=== PATIENT | female | born 1950 | race Caucasian/White ===

== ENCOUNTER 2019-02-26 08:02 | Day surgery (SDC) | payer OTHER ==
[2019-02-24 15:13] LABS: Absolute Lymphocytes (CBC) 1.6 K/uL (0.7-4.9); Absolute Monocytes 0.3 K/uL (0.1-1.3); Absolute Neutrophil 2.8 K/uL (1.8-8.0); Basophils % 0.9 % (0-1.3); Eosinophils % 2.4 % (0-4.4); Hematocrit 36.7 % (36.0-45.0); Lymphocytes % 32.9 % (15.3-44.8); MPV 7.9 fL (7.6-11.3); Monocytes % 6.9 % (3.3-12.3); RBC Red Blood Cell Count 4.36 M/uL (3.86-4.86)
[2019-02-24 15:42] LABS: Urine Appearance CLEAR; Urine Bilirubin NEGATIVE (NEG); Urine Blood NEGATIVE (NEG); Urine Color YELLOW; Urine Glucose NEGATIVE (NEG); Urine Protein NEGATIVE (NEG); Urine Urobilinogen 0.2 mg/dL (0.2-1.0); Urine pH 6.5 (5.0-7.0)
[2019-02-24 16:00] LABS: Urine Microscopic Reflex ORDER UMIC
[2019-02-24 19:03] LABS: Urine Bacteria 20-50 /HPF (<20); Urine Culture Reflex Order REFLEXED; Urine RBC <5 /HPF (NONE SEEN)
--- OUTSIDE RECORDS SUMMARY | 2019-02-26 08:11 | XMS REPORT | Clinical Summary ---
:1950 Author Organization [facility] Address [address] [place] [id number] Care Team Providers Name Role Phone Radha Dillon MD Unavailable Unavailable Sharpless Primary Care Provider Allergies Active Allergy Reactions Severity Noted Date Comments Niacin Preparations Other (See Comments) 06/10/2013 Oral swelling Medications Medication Sig Dispensed Refills Start Date End Date Status metoprolol (TOPROL XL) Take 200 mg by 0 Active 200 MG 24 hr tablet mouth nightly . multivitamin Take 1 tablet by 0 Active (MULTIVITAMIN) per mouth daily. tablet omeprazole (PRILOSEC) Take 20 mg by 0 Active 20 MG capsule mouth daily. sertraline (ZOLOFT) 100 Take 100 mg by 0 05/19/2014 Active MG tablet mouth nightly. Active Problems Problem Noted Date Overweight 05/21/2015 Post-menopause 01/12/2015 Long-term use of immunosuppressant medication 05/19/2014 Lymphocytosis 01/07/2014 Psoriatic arthritis 06/10/2013 Disorder of bone and cartilage 06/10/2013 Psoriasis 06/10/2013 Cirrhosis 06/10/2013 Immunizations Name Dates Previously Given Next Due Pneumococcal Polysaccharide (Pneumovax) 11/05/2009 Family History Medical History Relation Name Comments Unremarkable Brother Unremarkable Brother Unremarkable Brother Hypothyroidism Daughter Cancer Father non hodjkins lymphoma Macular degeneration Father Hyperlipidemia Mother Hypertension Mother Unremarkable Sister Unremarkable Sister Cancer Sister lung Diverticulitis Son Gout Son Relation Name Status Comments Brother Alive Brother Alive Brother Alive Daughter Alive Father Maternal Grandfather Maternal Grandmother Mother Alive Paternal Grandfather Paternal Grandmother Sister Alive Sister Alive Sister Son Alive Son (Age age 42) ruptured brain anuerysm Son (Age 17) ARDS/ Auto accident Social History Tobacco Use Types Packs/Day Years Used Date Former Smoker Cigarettes 1.5 Quit: 06/09/2012 Smokeless Tobacco: Never Used Comments: 10 cigarettes per week Alcohol Use Drinks/Week oz/Week Comments Yes occasionally/ 1 x weekly ( 2 glasses wine) Sex Assigned at Date Recorded Not on file Job Start Date Occupation Industry Not on file Not on file Not on file Travel History Travel Start Travel End No recent travel history available. Last Filed Vital Signs Not on file Plan of Treatment Health Maintenance Due Date Last Done Comments INFLUENZA VACCINE 08/05/2018 Results Not on fileafter 02/25/2018 Insurance Payer Benefit Plan / Group Subscriber ID Type Phone Address MEDICARE MEDICARE A B xxxxxxxxxx Medicare AETNA - MGD CARE AETNA TRS RETIREES xxxxxxxxxx HMO/POS (Home) [address] [place] [address]
[2019-02-26] MEDS ORDERED: Ringers Lactate 1,000 ML IV ONE (08:33)
[2019-02-26] MEDS ORDERED: CEFAZOLIN/SWI 2gm 2 GM/20 ML SYR ONE (08:34)
[2019-02-26] MEDS ORDERED: LIDOCAINE 2% MPF 5 ML VIAL ONE (09:17)
[2019-02-26] MEDS ORDERED: PROPOFOL 200 MG/20 ML VIAL IV ONE (09:17)
[2019-02-26] MEDS ORDERED: MIDAZOLAM HCL 2 MG/2 ML INJ ONE (09:17)
[2019-02-26] MEDS ORDERED: FENTANYL CITR 100 MCG/2 ML ONE (09:17)
[2019-02-26] MEDS ORDERED: LIDOCAINE 1% W/EPI 1:100,000 MDV 50 ML VIAL ONE (09:22)
[2019-02-26] MEDS ORDERED: KETOROLAC 30 MG/ML INJ ONE (10:37)
--- NOTE | 2019-03-06 09:48 | OP ---
Date of Procedure: 02/26/2019 Surgeon: Breanna Small MD Preoperative Diagnosis: Vulvar intraepithelial neoplasia 2, high-grade vulvar dysplasia. Postoperative Diagnoses: Vulvar intraepithelial neoplasia 2, high-grade vulvar dysplasia and perineo luis felipe. Procedures Performed: 1.Wide local excision of high-grade vulvar dysplasia. 2.Perineorrhaphy. 3.Closure of the wide local excision with advancement flaps from the inner vaginal wall after mobili zing the perineal skin as well. Specimens: Vulvar vestibular epithelium. Anesthesia: General endotracheal. Complications: No complications. Drains: No drains. Condition: Stable. Findings: On vulvar colposcopy, no obvious dysplastic lesions were seen with application of acetic a geovani and needing 2 minutes. There were signs of inflammatory response from reparative changes after t he vulvoperineal biopsy. The images of the vulvar dysplastic changes from the time of the colposcopy was carried to the OR for me to map out the dysplastic changes and make sure that the area of excision was marked out appropri ately, keeping in mind the location of the original dysplastic changes. Procedure In Detail: After the patient was consented, 2 g of Ancef were given in the preop taken to the OR, placed in a supine fashion on the operating table. After general anesthesia was given, she w as placed in dorsal lithotomy position using Nikko stirrups. Vulvar colposcopy was performed with di luted acetic acid. No dysplastic changes were noted other than the reparative changes as dictated ab ove. The area of the excision was mentally marked and the outer margins for reconstruction, all ezio ed out with the help of a marking pen going laterally and labia majora on both sides. Incision was e xtended all the way to the level of the hymenal ring. There was a notable perineocele at this time, which was examined rectal finger as well as the perineal finger and a stage II posterior wall prolaps e with the distal rectovaginal septum defect. The perineal skin was also marked out and the distal part of the incision was placed above the level of the perianal area and then a ortiz-shaped incision was made all the way to the lateral aspects o f the vestibule down to connect the triangle of the tip of the perineal at the tip of the perineum an d in the upper tip to the level of the hymen. Dilute vasopressin was injected into this area. About 20 cc was injected and a 15 blade was used to make the incision widely. The entire skin here was ex cised in full depth till the underlying tissues was seen and then the specimen was sent for permanent pathology. On entering the perineal body, lateral margins were refreshed. The scar tissue was looked at. Three Allis clamps were placed on each side in order for me to recognize the deep transverse perineum, sup erficial transverse perineum that would meet at the level of the perineal body. There was not a nohemi kenyatta body, which was absent. Then this defect continuously went up into the distal part of the poste rior rectovaginal septum. So, incision was made along the posterior rectovaginal septum about 3 cm. This was to raise all the flaps of the vaginal epithelium and sub-epithelium them from th e rectovaginal fascia. Once the fascial edges were identified here, these were held with 2 Allis cla mps. The need to be reconstruct the perineal body and reattachment of the distal parts to the perine al body. This would support. This would not only reduce the posterior wall defect, but it would als o support the perineal body so that the prolapse would not advance over time. Since I did not consent her completely for rectocele repair, this was not performed. After laterally dissecting to find the remnants of the transverse perineal muscles, the ureters were also palpated and identified. Dissection of the rectocele was carried to the lateral aspect to the l evel of the levators. Once the epithelial edges were trimmed up, then plan was to place 2 interrupte d 2-0 Vicryl sutures in distal rectovaginal septum in the distal most part and then reconstructed the perineal body with the finger in the vagina suturing with my other hand. Four 2-0 Vicryl sutures we re placed in the lateral [id number] fashion in order to bring all the deep and superficial transver se perinei muscles attaching into the perineal body together. Once these were all tied down after ch anging the gloves, then, there was an excellent perineal body to which the top rectovaginal septum wa s attached with the running 2-0 Vicryl suture. Once the site-specific defect was repaired, there was excellent tone and so the vaginal epithelial edges were advanced on the top. The lateral labial str atified squamous epithelium was also mobilized as well as the perineal skin as well. The external sp hincter was intact. No problems with this. Then, once advancement flaps were all done with the help of Allis clamps and 15 blade, hemostasis was secured with the help of the Bovie. Then, the incision was closed laterally from the angles on each side with interrupted 2-0 Vicryl, then once the advance ment of the vaginal epithelium could cover the perineum, then, these stitches were placed with the he lp of 3-0 Vicryl sutures attaching them and reconstructing. Then 2-0 Vicryl in a continuous running locked fashion was used to close the distal rectocele repair and the proximal perineal body repair an d 3-0 Vicryl was then taken and subcutaneous closure and subcuticular closures were done all with run josh absorbable Vicryl suture. Then, there were 2 interrupted Vicryl suture that I placed on each si de to take the tension off the suture line and keep everything intact. Once all this was done, there was excellent perineal body. External sphincter appeared to be in tone. Then, the distal rectovagi nal septum was reattached to the newly reconstructed perineal body and the entire skin that was marke d out for a removal of dysplastic skin was all excised completely and then the reconstruction was com pleted. The rectal exam was performed. No evidence of any trauma or mechanical thermal to it. Inst rument, needle, and sponge counts were done and were correct at the case. The patient tolerated the procedure well. She was recovered from anesthesia in the OR and taken to PACU in stable condition. SUSANA/SUSHMA Voice ID: [id number] Report ID: [id number]
== END 2019-02-26 13:15 | disposition home or self-care (01) ==
LOC: OR 08:02
PROVIDERS: ATTEND Obstetrics & Gynecology
PROC: 0UBMXZZ Excision of Vulva, External Approach (ICD-10-PCS; 2019-02-26)
PROC: 0USG0ZZ Reposition Vagina, Open Approach (ICD-10-PCS; principal; 2019-02-26 09:30)
DX: N90.1 Moderate vulvar dysplasia (principal); N95.2 Postmenopausal atrophic vaginitis; K62.3 Rectal prolapse; N81.81 Perineocele; L40.0 Psoriasis vulgaris; I10 Essential (primary) hypertension; K21.9 Gastro-esophageal reflux disease without esophagitis; F32.9 Major depressive disorder, single episode, unspecified; Z79.1 Long term (current) use of non-steroidal anti-inflammatories (NSAID); Z79.899 Other long term (current) drug therapy
CPT/HCPCS: 57285; 56620; 87088; 85025; 87086; 36415; 86900; 86850; 86901; 88305; 87077; 87186; J2704; J2250; J3010; J0690; 81003; 81015

== ENCOUNTER 2019-11-25 18:55 | Emergency (ER) | payer OTHER ==
[2019-11-25] MEDS ORDERED: TETANUS & DIPHTHERIA TOX,ADULT 0.5 ML VIAL ONE (19:36)
[2019-11-25] MEDS ORDERED: LIDOCAINE 1% 20 ML MDV ONE (19:37)
--- NOTE | 2019-11-25 20:02 | RAD REPORT ---
EXAM DESCRIPTION: RAD - Pelvis - 11/25/2019 7:57 pm CLINICAL HISTORY: fall;Pain COMPARISON: Sacrum And Coccyx dated 11/25/2019 FINDINGS: No fracture, dislocation or radiographic evidence of AVN. IMPRESSION: Negative study.
--- NOTE | 2019-11-25 20:02 | RAD REPORT ---
EXAM DESCRIPTION: RAD - Tib Fib Right - 11/25/2019 7:57 pm CLINICAL HISTORY: r/o FB Pain and swelling COMPARISON: No comparisons FINDINGS: No acute fracture or radiopaque foreign body seen. Large plantar and small posterior calca kenyatta spur.
--- NOTE | 2019-11-25 20:04 | RAD REPORT ---
EXAM DESCRIPTION: RAD - Sacrum And Coccyx - 11/25/2019 7:57 pm CLINICAL HISTORY: fall Fall, pain COMPARISON: Spine Lumbar W obliques dated 10/31/2019; SPINE LUMBAR W OBLIQUE dated 08/13/2015; COCCYX dated 03/02/2008; SPINE LUMBAR W OBLIQUE dated 03/02/2008 FINDINGS: No acute fracture is seen. No aggressive marrow lesion.
--- NOTE | 2019-11-25 20:49 | ER ---
Nurse's Notes [facility] Name: Rema Gray Age: 69 yrs Sex: Female : 1950 Arrival Date: 11/25/2019 Time: 18:59 Bed 30 Private MD: Ramon Devlin Diagnosis: Laceration of muscle(s) and tendon(s) of anterior muscle group at lower leg level, right leg;Contusion of right hip Presentation: 11/25 18:59 Presenting complaint: Patient states: fall injury occurred, unsure if she caught her sv shoe on something and has a laceration to RLE and c/o right hip pain and right upper arm. Denies LOC. Care prior to arrival: None. Mechanism of Injury: Fall from standing position. Trauma event details: Injury occurred in the [facility], Injury occurred: at home. Injury occurred: November 25, 2019. 18:59 Acuity: CELY 3 sv 18:59 Method Of Arrival: Ambulatory sv 19:03 Transition of care: patient was not received from another setting of care. Onset of sv symptoms was November 25, 2019. 19:20 Risk Assessment: Do you want to hurt yourself or someone else? Patient reports no hb desire to harm self or others. Initial Sepsis Screen: Does the patient meet any 2 criteria? No. Patient's initial sepsis screen is negative. Does the patient have a suspected source of infection? No. Patient's initial sepsis screen is negative. Trauma Activation: Not Applicable Physician: ED Physician; Name: ; Notified At: ; Arrived At: Physician: General Surgeon; Name: ; Notified At: ; Arrived At: Physician: Radiology; Name: ; Notified At: ; Arrived At: Physician: Respiratory; Name: ; Notified At: ; Arrived At: Physician: Lab; Name: ; Notified At: ; Arrived At: Historical: - Allergies: 19:02 Niacin; sv 19:02 Darvocet-N 100; sv - PMHx: 19:02 brain aneurysm; Hypertension; sv - PSHx: 19:02 Hysterectomy; brain surgery; leg surgery; sv - Immunization history:: Last tetanus immunization: > 10 years ago. - Social history:: Smoking status: Patient denies any tobacco usage or history of. - Ebola Screening: : No symptoms or risks identified at this time. Screenin:38 Abuse screen: Denies threats or abuse. Denies injuries from another. Nutritional hb screening: No deficits noted. Tuberculosis screening: No symptoms or risk factors identified. Fall Risk None identified. Primary Survey: 19:20 NO uncontrolled hemorrhage observed. A: The patient is alert. No supplemental oxygen in hb use on arrival. Breathing/Chest: Respiratory pattern: regular, Respiratory effort: spontaneous, unlabored, Chest inspection: symmetrical rise and fall of the chest. Circulation: Skin color: pink, Skin temperature: warm, dry. Disability Alert. Exposure/Environment: There is no evidence of uncontrolled external bleeding. Obvious injury(ies) are noted at this time: laceration to RLE, dressing dry and intact. 20:00 Reassessment Airway Airway Patent Breathing/Chest Respiratory pattern Regular hb Respiratory effort Spontaneous Unlabored Chest inspection Symmetrical Circulation Color Warm [place] Disability Alert. Secondary Survey: 19:22 HEENT: No deficits noted. Gastrointestinal: No deficits noted. : No signs and/or hb symptoms were reported regarding the genitourinary system. Musculoskeletal: Reports pain in tailbone, bilat hips, and RLE. Assessment: 19:20 General: Appears in no apparent distress. Behavior is calm, cooperative. Pain: Pain hb currently is 8 out of 10 on a pain scale. Neuro: Level of Consciousness is awake, alert, obeys commands, Oriented to person, place, time, situation. Cardiovascular: Capillary refill < 3 seconds Patient's skin is warm and dry. Respiratory: Airway is patent Respiratory effort is even, unlabored, Respiratory pattern is regular, symmetrical. GI: No signs and/or symptoms were reported involving the gastrointestinal system. : No signs and/or symptoms were reported regarding the genitourinary system. EENT: No signs and/or symptoms were reported regarding the EENT system. Derm: Skin is pink, warm \T\ dry. Musculoskeletal: Reports bilateral hip pain, tailbone pain, RLE pain. 20:10 Reassessment: Patient appears in no apparent distress at this time. Patient and/or hb family updated on plan of care and expected duration. Pain level reassessed. Patient is alert, oriented x 3, equal unlabored respirations, skin warm/dry/pink. 20:26 Reassessment: Dr. Myers at bedside for lac repair. hb Vital Signs: 19:02 BP 118 / 86; Pulse 85; Resp 16; Temp 98.8; Pulse Ox 100% ; Weight 77.11 kg; Height 5 sv ft. 6 in. (167.64 cm); Pain 8/10; 20:00 BP 126 / 84; Pulse 82; Resp 15; Pulse Ox 100% on R/A; hb 19:02 Body Mass Index 27.44 (77.11 kg, 167.64 cm) sv Beverly Coma Score: 19:15 Eye Response: spontaneous(4). Verbal Response: oriented(5). Motor Response: obeys hb commands(6). Total: 15. Trauma Score (Adult): 19:15 Eye Response: spontaneous(1); Verbal Response: oriented(1); Motor Response: obeys hb commands(2); Systolic BP: > 89 mm Hg(4); Respiratory Rate: 10 to 29 per min(4); Beverly Score: 15; Trauma Score: 12 20:00 Eye Response: spontaneous(1); Verbal Response: oriented(1); Motor Response: obeys hb commands(2); Systolic BP: > 89 mm Hg(4); Respiratory Rate: 10 to 29 per min(4); Beverly Score: 15; Trauma Score: 12 ED Course: 18:59 Patient arrived in ED. mr 18:59 Ramon Devlin MD is Private Physician. mr 19:02 Triage completed. sv 19:03 Arm band placed on. sv 19:14 José Miguel Myers MD is Attending Physician. tw4 19:20 Patient has correct armband on for positive identification. Bed in low position. Call hb light in reach. Side rails up X 1. 19:20 Patient maintains SpO2 saturation greater than 95% on room air. Thermoregulation: warm hb blanket given to patient. 19:37 Charleen Delarosa, RN is Primary Nurse. hb 19:57 Tib Fib Right XRAY In Process Unspecified. EDMS 19:57 Sacrum And Coccyx XRAY In Process Unspecified. EDMS 19:57 Pelvis XRAY In Process Unspecified. EDMS 20:08 Irrigation of laceration on right shi irrigated with normal saline Betadine solution hb Patient tolerated well. 20:48 Ramon Devlin MD is Referral Physician. tw4 20:57 No provider procedures requiring assistance completed. Patient did not have IV access hb during this emergency room visit. Administered Medications: 20:06 Drug: Tetanus-Diphtheria Toxoid Adult 0.5 ml {Director Of Digital Platforms: [employer]. Exp: hb 11/20/2021. Lot #: [id number]. } Route: IM; Site: right deltoid; 20:47 Follow up: Response: No adverse reaction hb 20:30 Drug: Lidocaine (1 %) 1 vials {Note: administered by Dr. Myers.} Volume: 20 ml; Route: hb Infiltration; 20:36 Drug: Cleocin 300 mg Route: PO; mg2 20:48 Follow up: Response: Medication administered at discharge. hb Intake: 19:15 PO: 0ml; Total: 0ml. hb Output: 19:15 Urine: 0ml; Total: 0ml. hb Outcome: 20:48 Discharge ordered by . tw4 20:57 Discharged to home ambulatory, with significant other. hb 20:57 Condition: stable 20:57 Discharge instructions given to patient, Instructed on discharge instructions, follow up and referral plans. medication usage, wound care, Demonstrated understanding of instructions, follow-up care, medications, wound care, Prescriptions given X 2. 20:58 Patient left the ED. hb 20:58 Patient's length of stay was not longer than 2 hours. hb Signatures: Dispatcher [employer] EDMS Saskia Perdue RN RN sv Rivera, Mary mr Baxter, Heather, RN RN hb Wadley, Terrence, MD MD [facility] Reinier Saleem RN RN mg2 Corrections: (The following items were deleted from the chart) 19:03 18:59 Presenting complaint: Patient states: fall injury occurred, unsure if she caught sv her shoe on something and has a laceration to RLE and c/o right hip pain. Denies LOC. sv 19:40 09:20 Patient has correct armband on for positive identification. Bed in low position. hb Call light in reach. Side rails up X 1. hb
--- NOTE | 2019-11-25 20:49 | EDPHYS ---
Physician Documentation [facility] Name: Rema Gray Age: 69 yrs Sex: Female : 1950 Arrival Date: 11/25/2019 Time: 18:59 Bed 30 Private MD: Ramon Devlin ED Physician José Miguel Myers HPI: 11/25 20:43 This 69 yrs old Female presents to ER via Ambulatory with complaints of Fall tw4 Injury. 20:43 Details of fall: The patient fell from an upright position, while standing, while tw4 walking. Onset: The symptoms/episode began/occurred today. Associated injuries: The patient sustained right shi. Severity of symptoms: At their worst the symptoms were moderate, in the emergency department the symptoms are unchanged. The patient has not experienced similar symptoms in the past. Historical: - Allergies: 19:02 Niacin; sv 19:02 Darvocet-N 100; sv - PMHx: 19:02 brain aneurysm; Hypertension; sv - PSHx: 19:02 Hysterectomy; brain surgery; leg surgery; sv - Immunization history:: Last tetanus immunization: > 10 years ago. - Social history:: Smoking status: Patient denies any tobacco usage or history of. - Ebola Screening: : No symptoms or risks identified at this time. ROS: 20:43 Constitutional: Negative for fever, chills, and weight loss, Eyes: Negative for injury, tw4 pain, redness, and discharge, Cardiovascular: Negative for chest pain, palpitations, and edema, Respiratory: Negative for shortness of breath, cough, wheezing, and pleuritic chest pain, Abdomen/GI: Negative for abdominal pain, nausea, vomiting, diarrhea, and constipation. 20:43 MS/Extremity: Negative for injury and deformity, Skin: Negative for injury, rash, and discoloration. 20:43 MS/extremity: Positive for laceration, pain. 20:48 Back: Positive for injury or acute deformity, pain at rest, pain with movement. tw4 Exam: 20:43 Constitutional: This is a well developed, well nourished patient who is awake, alert, tw4 and in no acute distress. Head/Face: Normocephalic, atraumatic. Chest/axilla: Normal chest wall appearance and motion. Nontender with no deformity. No lesions are appreciated. Cardiovascular: Regular rate and rhythm with a normal S1 and S2. No gallops, murmurs, or rubs. Normal PMI, no JVD. No pulse deficits. Respiratory: Lungs have equal breath sounds bilaterally, clear to auscultation and percussion. No rales, rhonchi or wheezes noted. No increased work of breathing, no retractions or nasal flaring. Abdomen/GI: Soft, non-tender, with normal bowel sounds. No distension or tympany. No guarding or rebound. No evidence of tenderness throughout. Neuro: Awake and alert, GCS 15, oriented to person, place, time, and situation. Cranial nerves II-XII grossly intact. Motor strength 5/5 in all extremities. Sensory grossly intact. Cerebellar exam normal. Normal gait. 20:43 Musculoskeletal/extremity: Extremities: noted in the right shi: laceration. Vital Signs: 19:02 BP 118 / 86; Pulse 85; Resp 16; Temp 98.8; Pulse Ox 100% ; Weight 77.11 kg; Height 5 sv ft. 6 in. (167.64 cm); Pain 8/10; 20:00 BP 126 / 84; Pulse 82; Resp 15; Pulse Ox 100% on R/A; hb 19:02 Body Mass Index 27.44 (77.11 kg, 167.64 cm) sv Beverly Coma Score: 19:15 Eye Response: spontaneous(4). Verbal Response: oriented(5). Motor Response: obeys hb commands(6). Total: 15. Trauma Score (Adult): 19:15 Eye Response: spontaneous(1); Verbal Response: oriented(1); Motor Response: obeys hb commands(2); Systolic BP: > 89 mm Hg(4); Respiratory Rate: 10 to 29 per min(4); Flushing Score: 15; Trauma Score: 12 20:00 Eye Response: spontaneous(1); Verbal Response: oriented(1); Motor Response: obeys hb commands(2); Systolic BP: > 89 mm Hg(4); Respiratory Rate: 10 to 29 per min(4); Beverly Score: 15; Trauma Score: 12 Laceration: 20:46 Wound Repair of 10cm ( 3.9in ) subcutaneous laceration to right shi. Minimal bleeding tw4 noted.. Distal neuro/vascular/tendon intact. Anesthesia: Local anesthetic administered with 3 mls of 1% lidocaine. Wound prep: Moderate cleansing. Skin closed with 4 3-0 Ethilon using interrupted sutures and sterile technique. Dressed with Bacitracin, non-adherent dressing. Patient tolerated well. MDM: 19:14 Patient medically screened. tw4 11/26 03:59 Differential diagnosis: abrasion, closed head injury, contusion. Data reviewed: vital tw4 signs, nurses notes. Data interpreted: Pulse oximetry: Interpretation: normal. Counseling: I had a detailed discussion with the patient and/or guardian regarding: the historical points, exam findings, and any diagnostic results supporting the discharge/admit diagnosis. Special discussion: I discussed with the patient/guardian in detail that at this point there is no indication for admission to the hospital. It is understood, however, that if the symptoms persist or worsen the patient needs to return immediately for re-evaluation. 11/25 19:30 Order name: Tib Fib Right XRAY tw4 11/25 19:30 Order name: Sacrum And Coccyx XRAY tw4 11/25 19:30 Order name: Pelvis XRAY tw4 Administered Medications: 11/25 20:06 Drug: Tetanus-Diphtheria Toxoid Adult 0.5 ml {Health Safety Coordinator: 21GRAMS. Exp: hb 11/20/2021. Lot #: [id number]. } Route: IM; Site: right deltoid; 20:47 Follow up: Response: No adverse reaction 20:30 Drug: Lidocaine (1 %) 1 vials {Note: administered by Dr. Myers.} Volume: 20 ml; Route: hb Infiltration; 20:36 Drug: Cleocin 300 mg Route: PO; mg2 20:48 Follow up: Response: Medication administered at discharge. Disposition: 11/25/19 20:48 Discharged to Home. Impression: Laceration of muscle(s) and tendon(s) of anterior muscle group at lower leg level, right leg, Contusion of right hip. - Condition is Stable. - Discharge Instructions: Laceration Care, Adult, Contusion, [id number]. - Prescriptions for Cleocin 300 mg Oral Capsule - take 1 capsule by ORAL route every 6 hours for 10 days; 40 capsule. Ibuprofen 600 mg Oral Tablet - take 1 tablet by ORAL route every 6 hours As needed take with food; 30 tablet. - Medication Reconciliation Form, Thank You Letter, Antibiotic Education, Prescription Opioid Use form. - Follow up: Ramon Devlin MD; When: Upon discharge from the Emergency Department; Reason: Recheck today's complaints, Continuance of care. - Problem is new. - Symptoms have improved. Signatures: Dispatcher [employer] Saskia Mcmanus, YVROSE RN Charleen Crespo RN RN hb Wadley, Terrence, MD MD tw4 Reinier Saleem RN RN mg2 Corrections: (The following items were deleted from the chart) 20:58 20:48 11/25/2019 20:48 Discharged to Home. Impression: Laceration of muscle(s) and hb tendon(s) of anterior muscle group at lower leg level, right leg; Contusion of right hip. Condition is Stable. Forms are Medication Reconciliation Form, Thank You Letter, Antibiotic Education, Prescription Opioid Use. Follow up: Ramon Devlin; When: Upon discharge from the Emergency Department; Reason: Recheck today's complaints, Continuance of care. Problem is new. Symptoms have improved. tw4
[2019-11-26 12:43] VITALS: TEMP 98.8; O2SAT 100
[2019-11-26 12:45] VITALS: BP 126/84
== END 2019-11-25 20:58 | disposition home or self-care (01) ==
LOC: ER 18:55
PROC: 0JQN0ZZ Repair Right Lower Leg Subcutaneous Tissue and Fascia, Open Approach (ICD-10-PCS; principal; 2019-11-25)
DX: S81.811A Laceration without foreign body, right lower leg, initial encounter (principal); W18.30XA Fall on same level, unspecified, initial encounter; Y93.9 Activity, unspecified; Y92.9 Unspecified place or not applicable; S70.01XA Contusion of right hip, initial encounter; S86.921A Laceration of unspecified muscle(s) and tendon(s) at lower leg level, right leg, initial encounter; Z88.6 Allergy status to analgesic agent; Z23 Encounter for immunization
CPT/HCPCS: 72170; 72220; 90471; 90714; 99284

== ENCOUNTER 2019-12-08 08:00 | Day surgery (SDC) | payer OTHER ==
[2019-12-08 08:37] LABS: MPV 7.5 fL (7.6-11.3)
[2019-12-08 08:47] LABS: Protime INR 1.08
[2019-12-08 09:33] LABS: Platelet Estimate ADEQ
[2019-12-08 10:14] VITALS: BMI 27.4
--- NOTE | 2019-12-08 12:00 | RAD REPORT ---
EXAM DESCRIPTION: RAD - Myelography Lumbar - 12/08/2019 10:50 am CLINICAL HISTORY: M545,[id number] COMPARISON: Spine Lumbar W obliques dated 10/31/2019 TECHNIQUE: Patient presents for lumbar myelography and postmyelogram CT imaging. Patient detailed bi lateral lower extremity radiculopathy episodes with low back pain. Patient reports aneurysm clips jewell norma 20 years earlier for aneurysm. The myelogram procedure, risks and alternatives were discussed with the patient in detail. After answ ering all questions, both oral and written consent were obtained. Patient had no contraindicated leopoldo rgy or medication history. Time-out procedure was performed. Patient was placed in a slightly oblique prone position on the fluoroscopic table. Access site was se lected. The skin of the lower back was prepped and draped in the usual sterile fashion. Skin and deep er tissues were anesthetized with 1% lidocaine. Under fluoroscopic guidance a 22 gauge spinal needle was advanced into the thecal sac. Clear colorless CSF was observed. Approximately 8 mL of Isovue M 30 0 contrast material was instilled into the thecal sac. The needle was withdrawn and a sterile bandage placed to the puncture site. Multiple myelogram images were obtained. The patient was then transferr ed to the CT suite for pending cross-sectional imaging. Patient experienced no immediate complications. Postprocedure care and precaution instructions were g iven to the patient. There were 7 fluoroscopic spot images obtained along with AP and lateral shop firer/fireman images. Fluoro time was 2.3 minutes. FINDINGS: Successful lumbar myelogram procedure performed. There were no immediate complications. Lumbar myelogram findings are incorporated into the CT lumbar spine report.
[2019-12-08 13:26] VITALS: BP 113/57; TEMP 98.8; O2SAT 98
--- NOTE | 2019-12-08 13:54 | RAD REPORT ---
EXAM DESCRIPTION: CT - Spine Lumbar Wo Con - 12/08/2019 10:55 am CLINICAL HISTORY: M545,[id number] Patient details back pain and bilateral lower extremity radicular intermittent symptoms. Patient alex ot undergo MRI imaging due to cerebral aneurysm clips. COMPARISON: Lumbar myelogram films same date, lumbar spine films October 2019 TECHNIQUE: Thin section axial imaging of the lumbar spine was performed. Sagittal and coronal recon struction images were generated and reviewed. All CT scans are performed using dose optimization technique as appropriate and may include automated exposure control or mA/KV adjustment according to patient size. FINDINGS: Minimal height loss changes are present in the T12-L2 bodies. Degenerative endplate change s seen superior endplate L2. Posterior wall heights are preserved. Acute fracture changes are not jonnie ntified. There are no lytic, sclerotic or expansile associated findings. L3-L5 bodies are normal in height. There are no subluxation abnormalities. No paraspinal soft tissue mass identifiable. No pars defects are present. Conus terminates at the inferior L1 level. No clumping or thickening of the cauda equina. T11-12: No herniation or significant disc bulge. Left-sided facet hypertrophy and mild ligamentous th ickening creates flattening of the left posterior thecal sac. No flattening or displacement of the co rd. T12-L1: No herniation or significant disc bulge. No canal or foramen stenosis. L1-2 level: No herniation or disc bulge in the central canal. Minimal right foraminal disc bulge mijares ges without stenosis. Facet joint degenerative changes are mild. L2-3 level: Loss in disc height noted. No herniation present in only very minimal disc bulge within t he central canal. No stenosis in the central canal. Mild right foraminal disc bulge changes are prese nt without significant foramen encroachment. Degenerative gas is present in the disc space. L3-4 level: No herniation or significant disc bulge in the central canal. Minimal foraminal disc bulg e without significant stenosis. Facet degenerative change and ligamentous thickening are present with out flattening of the thecal sac. L4-5 level: Mild broad-based bulging of disc material across the central canal and into each exit for amen. No herniation. Facet degenerative change and ligamentous thickening are present. Thecal sac is 12 mm. No significant foraminal encroachment. L5-S1 level: No herniation or significant disc bulge. No canal or foramen stenosis. Mild facet degene rative change present. IMPRESSION: No disc herniation is present and there is no central canal stenosis identifiable. Patie nt has minimal disc bulge changes at L2-3 and L4-5 without mass effect on the thecal sac. Several disc levels show mild foraminal disc bulges without foraminal stenosis. No abnormality of the conus or cauda equina. The T12- L2 bodies show minimal height loss along the superior endplates. Chronic etiology is favored . No acute fracture line seen. No lytic or sclerotic component. Multilevel facet degenerative change and mild ligamentous thickening not causing significant encroach ment. Left-sided facet hypertrophy and ligamentous thickening T11-12. This flattens the thecal sac but does not contact or displace the cord.
== END 2019-12-08 13:30 | disposition home or self-care (01) ==
LOC: DS 08:00
PROVIDERS: ATTEND Specialist
DX: M54.5 Low back pain (principal); M54.16 Radiculopathy, lumbar region
CPT/HCPCS: 36415; 62304; 72131; 85049; 85610; 85730

== ENCOUNTER 2020-07-23 07:47 | Day surgery (SDC) | payer OTHER ==
--- NOTE | 2020-07-21 05:56 | EKG ---
Test Date: 2020-07-19 Test Time: 11:19:47 Cannon Crewmember: MARIA D MEASUREMENT RESULTS: Intervals: Rate: 65 CA: 152 QRSD: 84 QT: 414 QTc: 430 Woden: P: 11 CA: 152 QRS: 60 T: 78 INTERPRETIVE STATEMENTS: Normal sinus rhythm Nonspecific ST abnormality Abnormal ECG Compared to ECG 06/30/2005 23:55:00 ST (T wave) deviation now present Sinus tachycardia no longer present Electronically Signed On 07-21-20 05:50:49 CDT by Joel Rogers
--- OUTSIDE RECORDS SUMMARY | 2020-07-23 07:51 | XMS REPORT | Continuity of Care Document ---
:1950 Author Organization [facility] t Address [address] [place] [address] 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 3-05 [facility] 00 Center Psoriatic Psoriatic Disease Active [facility] arthritis arthritis 8-06 [facility] - 00:[facility]: [facility] 00 Center Disorder Disorder Disease Active [facility] of bone of bone [facility]06 [facility] - and and 00:00: Medical cartilage cartilage 00 Cent er Psoriasis Psoriasis Disease Active [facility] - [facility]: [facility] 00 Center Cirrhosis Cirrhosis Disease Active [facility] - 00[facility] 00 Center Cough Cough Problem [facility] Seasonal Seasonal Problem Active [facility] allergic allergic [facility] - rhinitis, rhinitis, Chang zoila unspecifie unspecifie l d trigger d trigger Outp ati ent Clinics Generalize Generalize Diagnosis Active [facility] d anxiety d anxiety [facility] - disorder disorder [facility] a l Outpati ent Clinics GERD GERD Diagnosis Active [facility] without without [facility] - esophagiti esophagiti Me moria s s l [facility] Psoriasis Psoriasis Problem Active [facility] ent Clinics Non-season Non-season Diagnosis Active [facility] al al [facility] - allergic allergic Mem[facility] a rhinitis, rhinitis, l unspecifie unspecifie Ou tpati d trigger d trigger ent Clinics Psoriasis Psoriasis Diagnosis Active [facility] with with [facility] - arthropath arthropath Me moria y y l [facility] ent Clinics Current Current Diagnosis Active [facility] moderate moderate [facility] - episode of episode of Me moria major major l depressive depressive Ou tpati disorder disorder ent without without Clinics prior prior episode episode Essential Essential Diagnosis Active [facility] hypertensi hypertensi Darlene kes - on on [facility] ent Clinics Hypothyroi Hypothyroi Diagnosis Active [facility] dism, dism, [facility] - unspecifie unspecifie Me moria d type d type [facility] ent [facility] Fatigue, Fatigue, Diagnosis Active [facility] unspecifie unspecifie Darlene kes - d type d type [facility] ent Clinics History of History of Diagnosis Active [facility] fall fall [facility] ent Clinics Polyp of Polyp of Diagnosis Active [facility] colon, colon, [facility] - unspecifie unspecifie Me moria d part of d part of l colon, colon, [facility] unspecifie unspecifie en t d type d type Clinics Peripheral Peripheral Diagnosis Active [facility] edema edema [facility] ent Clinics Exocrine Exocrine Diagnosis Active [facility] pancreatic pancreatic Darlene kes - insufficie insufficie Me moria ncy ncy [facility] ent Clinics Allergies, Adverse Reactions, Alerts Allergy Allergy Status Severity Reaction(s) Onset Inactive Treating Comm ents Source Name Type Date Date Clinician Niacin Drug Active Other (See Oral [facility] Preparat Allergy Comments) 06-10 swelling Darlene kes - ions 00:00: Medical 00 Center Niacin Allergy Active Moderate Other [place] to to severe da [facility] e Group Niacin Adverse Active Info Not [facility] Reaction Available [facility] ent [facility] Family History Family Member Diagnosis Comments Start Date Stop Date Source Natural brother Unremarkable [facility] Natural daughter Hypothyroidism [facility] Natural father Cancer [facility] Natural father Macular degeneration [facility] Natural mother Hyperlipidemia [facility] Natural mother Hypertension [facility] Natural sister Unremarkable [facility] Natural sister Cancer [facility] Natural son Diverticulitis [facility] Natural son Gout [facility] Social History Social Habit Start Date Stop Date Quantity Comments Source Sex Assigned At [facility] Tobacco Comment 2014-08-19 2014-08-19 10 cigarettes per [facility] I [facility] - 00:00:00 00:00:00 week [facility] Alcohol Comment 2014-08-19 2014-08-19 occasionally/ 1 x [facility] - 00:00:00 00:00:00 weekly ( 2 glasses [facility] wine) History of 2012-06-[address] [facility] tobacco use 00:00:00 Medical Woodrow keith Smoking Status Start Date Stop Date Source Never Smoker [facility] Former smoker 2016-10-19 00:00:00 2016-10-19 00:00:00 [facility] Medications Ordered Filled Start Stop Current Ordering Indication Dosage Frequency Signature Comments Components Source Medication Medication Date Date Medication? Clinician (SIG) Name Name Synthroid Synthroid Yes Sudhakar [address] [facility] 5-20 [place] IN THE [facility] - 00:00: MORNING ON Memoria 00 AN EMPTY l STOMACH Outpati ONCE A DAY ent ORALLY 30 Clinics DAY(S) metoprolol 2015-11 Yes 200mg QD Take [address] (TOPROL XL) 2-13 mg by [facility] - 200 MG 24 16:19: mouth Medical hr tablet 27 nightly . Cente r omeprazole 2015-11 Yes 20mg QD Take [address] (PRILOSEC) 2-13 by mouth [facility] - 20 MG 16:18: daily. Medical capsule 44 [facility] multivitami 2013-11 Yes 1{tbl} QD Take [address] n 0-15 tablet by [facility] - (MULTIVITAM 10:33: mouth Medic al IN) per 47 daily. [facility] tablet sertraline Yes 100mg QD Take [address] (ZOLOFT) 7-15 mg by [facility] - 100 MG 00:00: mouth Medical tablet 00 nightly. Center amlodipine amlodipine No amlodipine [place] 10 mg 10 mg 10 mg da tablet tablet tablet Medical Group meloxicam meloxicam No meloxicam [place] 7.5 mg 7.5 mg 7.5 mg da tablet tablet tablet Medical Group pantoprazol pantoprazol No pantoprazo [place] e 40 mg e 40 mg le 40 mg da tablet,jennifer tablet,jennifer tablet,del Medical yed release yed release ayed G roup release sertraline sertraline No sertraline [place] 100 mg 100 mg 100 mg da tablet tablet tablet Medical Group Metoprolol Metoprolol Yes Sudhakar [address] Succinate Succinate [place] [facility] - [facility] Skyrizi Skyrizi Yes Sudhakar 150 mg [facility] t (150 MG (150 MG [place] every 12 Luke s - Dose) Dose) weeks Memoria l [facility] Clinics Amlodipine Amlodipine Yes Sudhakar TAKE [address] [facility] Besylate Besylate [place] TABLET BY L ukes - MOUTH Memoria EVERY DAY l [facility] Protonix Protonix Yes Sudhakar [address] [place] [facility] Clin[facility] Losartan Losartan Yes Sudhakar [address] Potassium-H Potassium-H [place] [facility] - CTZ CTZ Memoria l [facility] Allergy Allergy [place] [facility] Multivitami Multivitami Yes Sudhakar not [facility] n n [place] defined [facility] Levothyroxi Levothyroxi Yes Sudhakar [address] ne Sodium ne Sodium [place] in the - morning on Memoria an empty l stomach [facility] Cymbalta Cymbalta Yes Sudhakar [address] [facility] [place] [facility] Creon Creon Yes Sudhakar 6-[address] [place] capsules [facility] - [facility]oria [facility] Immunizations Ordered Immunization Filled Immunization Date Status Commen ts Source Name Name Pneumococcal 2009-11-[address] [facility] - Polysaccharide 00:00:00 Medical Ce nter (Pneumovax) Vital Signs Vital Name Observation Time Observation Value Comments Source BP Diastolic 2019-04-10 00:00:00 79 mm[Hg] [facility] Height 2019-04-10 00:00:00 66 [in_i] [facility] BMI (Body Mass 2019-04-10 00:00:00 25.8 kg/m2 [place] [employer] [facility]) Group BP Systolic 2019-04-10 00:00:00 122 mm[Hg] [facility] Body Weight 2019-04-10 00:00:00 2553 [oz_av] [facility] Procedures Procedure Date / Time Performing Clinician Source Performed Repair of Aneurysm by [facility]ste[facility] Plan of Care Planned Activity Planned Date Details Comments Source Instructions [facility] Encounters Start End Encounter Admission Attending Care Care Encounter Source Date/Time Date/Time Type Type Clinicians Facility Department ID 2020-06-09 2020-06-09 [facility] [id number] [facility] [address] 08:15:00 08:15:[address] [facility] Medicine Medicine Outpati ent Clinics 2020-03-23 2020-03-23 [facility] [id number] 15:58[facility]00 15:58:00 [facility] Family Medicine l Medicine Outpati ent Clinics 2020-03-04 2020-03-04 [facility] [id number] [facility] 15:00:00 15:00:00 [facility] Family Medicine l Medicine Outpati ent Clinics 2020-03-04 2020-03-04 [facility] [id number] 14:15:00 14:15:[address] [facility] Medicine l Medicine Outpati ent Clinics 2020-01-06 2020-01-06 [facility] [id number] 09:00:00 09:00:[address] 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 Results This patient has no known results.
--- OUTSIDE RECORDS SUMMARY | 2020-07-23 07:51 | XMS REPORT | Clinical Summary ---
:1950 Author Organization [facility] Address [address] [place] [id number] Care Team Providers Name Role Phone Krystle Dillon MD Unavailable Unavailable [facility] [...] Post-menopause 01/12/2015 Long-term use of immunosuppressant medication 05/19/20 14 Lymphocytosis 01/07/2014 Psoriatic arthritis 06/10/2013 Disorder of bone and cartilage 06/10/2013 Psoriasis 06/10/2013 Cirrhosis 06/10/2013 Immunizations Name Dates Previously Given Next Due Pneumococcal Polysaccharide (Pneumovax) 11/05/2009 Family History Medical History Relation Name Comments Unremarkable Brother Unremarkable Brother Unremarkable Brother Hypothyroidism Daughter Cancer Father non hodjkins lym phoma Macular degeneration Father Hyperlipidemia Mother Hypertension Mother Unremarkable Sister Unremarkable Sister Cancer Sister lung Diverticulitis Son Gout Son Relation Name Status Comments Brother Alive Brother Alive Brother Alive Daughter Alive Father Maternal Grandfather Maternal Grandmother Mother Alive Paternal Grandfather Paternal Grandmother Sister Alive Sister Alive Sister Son Alive Son (Age age 42) ruptured brain anuerysm Son (Age 17) ARDS/ Auto ac cident Social History Tobacco Use Types Packs/Day Years Used Date Former Smoker Cigarettes 1.5 Quit: 06/09/20 12 Smokeless Tobacco: Never Used Comments: 10 cigarettes [...] Signs Not on file Plan of Treatment Not on file Results Not on fileafter 07/23/2019 Insurance Payer Benefit Plan / Group Subscriber ID Type Phone A ddress MEDICARE MEDICARE A B xxxxxxxxxx Medicare AETNA - MGD CARE AETNA TRS RETIREES xxxxxxxxxx HMO/POS
--- OUTSIDE RECORDS SUMMARY | 2020-07-23 07:51 | XMS REPORT ---
:1950 Author Organization eClinicalWorks Care Team Providers Name Role Phone Maegan Machadoh Provider Role Unavailable Allergies, Adverse Reactions, Alerts Substance Reaction Event Type Niacin Info Not Available Drug Allergy Problems Problem Type Condition Code Onset Dates Condition Statu s Problem Seasonal allergic rhinitis, J30.2 Active unspecified trigger Problem GERD without esophagitis K21.9 Act rupinder Problem Cough R05 Active Problem Current moderate episode of major F32.1 Active depressive disorder without prior episode Assessment Fatigue, unspecified type R53.83 Ac tive Problem Non-seasonal allergic rhinitis, J30.89 Active unspecified trigger Assessment History of fall Z91.81 Active Assessment Polyp of colon, unspecified part of K63.5 Active colon, unspecified type Problem Hypothyroidism, unspecified type E03.9 Active Problem Psoriasis L40.9 Active Problem Generalized anxiety disorder F41.1 Active Problem 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 A ctive Problem Essential hypertension I10 Activ e Assessment Peripheral edema R60.9 Active Assessment Exocrine pancreatic insufficiency K86.81 Active Assessment Non-seasonal allergic rhinitis, J30.89 Active unspecified trigger Assessment GERD without esophagitis K21.9 Act rupinder Assessment Hypothyroidism, unspecified type E03.9 Active Assessment Current moderate episode of major F32.1 Active depressive disorder without prior episode Assessment 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 A ctive Assessment Essential hypertension I10 Activ e Assessment Generalized anxiety disorder F41.1 Active Medications Medication Code Code Instructions Start End Status Dosage System Date Date Metoprolol [facility] 90033931375 25 MG Orally Active 1 ca psule Succinate Once a day Skyrizi (150 MG [facility] 18638727510 75 MG/0.83ML Active 150 mg Dose) Subcutaneous every 12 weeks Synthroid [facility] 92968805880 25 MCG Active 1 TABLET I N THE MORNING ON AN EMPTY STOMACH ONCE A DAY ORALLY 30 DAY(S) Amlodipine [facility] 63889428049 10 MG Active TAKE 1 Besylate TABLET BY MOUTH EVERY DAY Protonix [facility] 83604233405 40 MG Orally Active 1 tabl et Once a day Losartan [facility] 68930050712 100-25 MG Active 1 tablet Potassium-HCTZ Orally Once a day Zyrtec Allergy [facility] 58647609067 10 MG Orally Active 1 tablet Once a day Multivitamin [facility] 24316-86797 Active not def ined Levothyroxine [facility] 23804695193 50 MCG Orally Active 1 tablet in Sodium Once a day the morning on an empty stomach Cymbalta [facility] 35415680345 30 MG Orally Active 1 caps ule Once a day Creon [facility] 26793058456 86329 UNIT Active 6-8 Orally Once a capsules day Results No Known Results Summary Purpose eClinicalWorks Submission
[2020-07-23] MEDS ORDERED: Ringers Lactate 1,000 ML IV ONE (08:16)
[2020-07-23] MEDS ORDERED: ROCURONIUM 50 MG/5 ML VIAL IV ONE (09:17)
[2020-07-23] MEDS ORDERED: EPINEPHRINE/PF 1 MG/ML AMP ONE (09:17)
[2020-07-23] MEDS ORDERED: propofoL 200 MG/20 ML VIAL IV ONE (09:17)
[2020-07-23] MEDS ORDERED: LIDOCAINE 2% MPF 5 ML VIAL ONE (09:17)
[2020-07-23] MEDS ORDERED: LIDOCAINE 1% W/EPI 1:100,000 MDV 20 ML VIAL ONE (09:17)
[2020-07-23] MEDS ORDERED: dexAMETHasone 10 MG/ML VIAL ONE (09:17)
[2020-07-23] MEDS ORDERED: FENTANYL CITR 100 MCG/2 ML ONE (09:17)
[2020-07-23] MEDS ORDERED: ONDANSETRON 4 MG/2 ML VIAL ONE ×2 (09:18→10:56)
[2020-07-23] MEDS: HYDROMORPHONE HCL 1 MG/ML INJ ONE ×3 (10:45→10:50)
[2020-07-23] MEDS ORDERED: DIPHENHYDRAMINE 50 MG/ML VIAL ONE (11:18)
[2020-07-23 11:27] VITALS: O2SAT 98
[2020-07-23] MEDS ORDERED: IBUPROFEN 400 MG TAB ONE (11:32)
[2020-07-23] MEDS ORDERED: ACETAMINOPHEN 325 MG TABLET ONE (11:42)
[2020-07-23 12:03] VITALS: BP 153/91; TEMP 97.3
--- NOTE | 2020-07-24 01:40 | OP ---
Date of Procedure: 07/23/2020 Surgeon: Saskia Ramírez MD Stamp Classifier: None. Preoperative Diagnoses: Supraglottic lesion and history of abnormal tracheal appearance. Postoperative Diagnoses: Supraglottic lesion and history of abnormal tracheal appearance. Procedure: Direct laryngoscopy with telescope with removal of mass with tracheoscopy. Indication For Procedure: The patient presented with a history of dysphagia and underwent a modified barium swallow, which demonstrated a small lesion within the vallecula or near the area aryepiglottic fold. The lesion did not appear significantly suspicious for malignancy, but it was uncertain whether the lesion may be contributing to the patient's dysphagia. The risks, benefits, and alternatives were discussed with the patient, who agreed to proceed. Of note, the patient has a remote history of a bronchoscopy performed more than 5 years ago with a photograph demonstrating an abnormal irregularity with multiple small nodules submucosally within the trachea, and surgical plan was to include repeat evaluation of this area. The patient did not have any subjective breathing difficulties or history of wheezing or shortness of breath. Description Of Procedure: The patient was brought to the operating room. She was placed under general anesthesia with small endotracheal tube. She was intubated without any significant difficulty. After successful plane of anesthesia, the [facility] laryngoscope fitted with a 15 degree scope. Telescope was used to perform a direct laryngoscopy. The soft palate, uvula, tonsil, posterior pharyngeal wall, epiglottis, true and false vocal cords, piriform sinuses, and post cricoid regions were all normal with smooth mucosa, no ulcerations and no masses. The lesion noted preoperatively was visualized and photo documentation was obtained. The lesion was relatively small, approximately 3-4 mm, and initially appeared to be within the left aspect of the vallecula with gentle manipulation with a suction. The lesion appeared pedunculated with its attachment point within the lateral aspect of the left vallecula. The lesion was grasped with a laryngeal alligator forceps and a straight laryngeal scissor was used to remove the mass at its attachment point. The mass was sent to Pathology as a single specimen for permanent section only. The vallecula was packed with a gauze sponge to apply pressure to the area to aid in hemostasis and preparations were made to coordinate with anesthesia in regard to the next portion of the procedure. After adequate communication with the Anesthesia team, the gauze sponge was removed. The balloon on the endotracheal tube was deflated and the tube was removed. A long 0 degree rigid telescope was passed through the glottis for visualization of the subglottis and trachea. Photo documentation was obtained. There were multiple small submucosal nodularities on the mid tracheal wall, which were more prominent on the left side. There was no evidence of friability. There was no evidence of airway obstruction and no significant change compared to images provided by the patient from several years ago. Therefore, decision was made to forego a biopsy or other intervention of these areas. The endotracheal tube was then replaced. The tip of the end of the endotracheal tube was grasped with large cup forceps and held in place while the laryngoscope was carefully removed. Once the laryngoscope was completely removed, the endotracheal tube was resecured with tape to the patient's face and the procedure was concluded. The patient was returned to care of Anesthesia for awakening and extubation in the operating room, which proceeded without difficulty. Complications: None. Disposition: The patient will be discharged home later today in the care of her family. RUFSU Voice ID: [id number] Report ID: [id number] MTDD
== END 2020-07-23 12:35 | disposition home or self-care (01) ==
LOC: OR 07:47
PROVIDERS: ATTEND Otolaryngology
PROC: 0BB18ZZ Excision of Trachea, Via Natural or Artificial Opening Endoscopic (ICD-10-PCS; principal; 2020-07-23 09:30)
DX: D10.5 Benign neoplasm of other parts of oropharynx (principal); K21.9 Gastro-esophageal reflux disease without esophagitis; I10 Essential (primary) hypertension; D64.9 Anemia, unspecified; E03.9 Hypothyroidism, unspecified; K86.1 Other chronic pancreatitis; Z20.828 Contact with and (suspected) exposure to other viral communicable diseases
CPT/HCPCS: 31541; 93005; 88305; J2704; J1200; J3010; J1100; J1170; J7120; J2405 ×2; J0171

== ENCOUNTER 2021-04-18 08:22 | Emergency (ER) | payer OTHER ==
[2021-04-18] MEDS ORDERED: IBUPROFEN 200 MG TAB PO ONE (08:58)
[2021-04-18] MEDS ORDERED: IBUPROFEN 400 MG TAB ONE (08:59)
--- NOTE | 2021-04-18 10:13 | RAD REPORT ---
EXAM DESCRIPTION: RAD - Knee Right 3 View - 04/18/2021 9:56 am CLINICAL HISTORY: PAIN COMPARISON: No comparisons FINDINGS: No acute fracture or dislocation is seen. Moderate suprapatellar joint effusion.
--- NOTE | 2021-04-18 11:13 | ER ---
Nurse's Notes [facility] Ernesto Name: Rema Gray Age: 71 yrs Sex: Female : 1950 Arrival Date: 04/18/2021 Time: 08:22 Bed 19 Private MD: Diagnosis: Effusion, right knee;Fall due to bumping against object;Pain in right knee Presentation: 04/18 08:22 Chief complaint: Patient states: R knee pain that began 2 days ago after falling from ss standing position. Coronavirus screen: Client denies travel out of the [place] in the last 14 days. Ebola Screen: Patient denies exposure to infectious person. Patient denies travel to an Ebola-affected area in the 21 days before illness onset. Initial Sepsis Screen: Does the patient meet any 2 criteria? No. Patient's initial sepsis screen is negative. Does the patient have a suspected source of infection? No. Patient's initial sepsis screen is negative. Risk Assessment: Do you want to hurt yourself or someone else? Patient reports no desire to harm self or others. Onset of symptoms was April 16, 2021. 08:22 Method Of Arrival: Ambulatory 08:22 Acuity: CELY 4 ss Historical: - Allergies: 08:24 Darvocet-N 100; ss 08:24 Niacin; ss - PMHx: 08:24 brain aneurysm; Hypertension; ss - PSHx: 08:24 Hysterectomy; brain surgery; leg surgery; ss - Immunization history:: Adult Immunizations unknown. - Social history:: Smoking status: unknown. - Family history:: not pertinent. Screenin:08 Abuse screen: Denies threats or abuse. Nutritional screening: No deficits noted. jd3 Tuberculosis screening: No symptoms or risk factors identified. Fall Risk Ambulatory Aid- Crutches/Cane/Walker (15 pts). Gait- Weak (10 pts.). Mental Status- Oriented to own ability (0 pts). Total Lagos Fall Scale indicates Low Risk Score (25-44 pts). Fall prevention measures have been instituted. Side Rails Up X 2 Placed close to Nursing Station Frequent Obs/Assesments occuring Family Present and informed to notify staff if they need to leave bedside. Assessment: 09:00 General: Appears in no apparent distress. comfortable, Behavior is calm, cooperative, jd3 appropriate for age. Pain: Complains of pain in right knee Quality of pain is described as shooting, tender. Neuro: Level of Consciousness is awake, alert, obeys commands, Oriented to person, place, time, situation. Cardiovascular: Denies chest pain, Capillary refill < 3 seconds Patient's skin is warm and dry. Respiratory: Airway is patent Respiratory effort is even, unlabored, Respiratory pattern is regular, symmetrical, Denies cough, shortness of breath. GI: No signs and/or symptoms were reported involving the gastrointestinal system. : No signs and/or symptoms were reported regarding the genitourinary system. EENT: No signs and/or symptoms were reported regarding the EENT system. Derm: Skin is intact, Skin is dry, Skin is normal, Skin temperature is warm Bruising that is dark purple, on chin. Musculoskeletal: Circulation, motion, and sensation intact. Range of motion: intact in all extremities. 10:01 Reassessment: Patient appears in no apparent distress at this time. No changes from jd3 previously documented assessment. Patient and/or family updated on plan of care and expected duration. Pain level reassessed. Patient is alert, oriented x 3, equal unlabored respirations, skin warm/dry/pink. 10:55 Reassessment: Patient appears in no apparent distress at this time. Patient and/or jd3 family updated on plan of care and expected duration. Pain level reassessed. Patient is alert, oriented x 3, equal unlabored respirations, skin warm/dry/pink. provider at bedside. 11:35 Reassessment: Patient appears in no apparent distress at this time. Patient and/or jd3 family updated on plan of care and expected duration. Pain level reassessed. Patient is alert, oriented x 3, equal unlabored respirations, skin warm/dry/pink. Vital Signs: 09:08 BP 119 / 87; Pulse 89; Resp 17 S; Temp 98.3(TE); Pulse Ox 99% on R/A; jd3 10:56 Pulse 87; Resp 16 S; Pulse Ox 99% on R/A; jd3 ED Course: 08:22 Patient arrived in ED. ss 08:23 Triage completed. ss 08:24 Arm band placed on right wrist. ss 08:27 James Morris RN is Primary Nurse. jd3 08:29 James Morris RN is Primary Nurse. jd3 08:30 Patrick Monreal MD is Attending Physician. [facility] 09:09 Patient has correct armband on for positive identification. Bed in low position. Call jd3 light in reach. Side rails up X 1. Adult w/ patient. Pulse ox on. NIBP on. 09:56 XRAY Knee RIGHT 3 view In Process Unspecified. EDCT 11:11 Kip Franks MD is Referral Physician. [facility] 11:35 No provider procedures requiring assistance completed. Patient did not have IV access jd3 during this emergency room visit. Administered Medications: 08:48 Drug: Motrin (ibuprofen) 600 mg Route: PO; jd3 09:48 Follow up: Response: No adverse reaction jd3 11:04 Drug: Telephone (HYDROcodone-acetaminophen) 10 mg-325 mg 1 tabs Route: PO; iw 11:35 Follow up: Response: No adverse reaction; RASS: Alert and Calm (0) jd3 11:04 Drug: Ondansetron 4 mg Route: PO; iw 11:35 Follow up: Response: No adverse reaction jd3 Outcome: 11:13 Discharge ordered by . [facility] 11:36 Discharged to home ambulatory, with crutches, with family. jd3 11:36 Condition: stable 11:36 Discharge instructions given to patient, family, Instructed on discharge instructions, follow up and referral plans. medication usage, Demonstrated understanding of instructions, follow-up care, medications, Prescriptions given X 2. 11:36 Patient left the ED. jd3 Signatures: Dispatcher [employer] EDCT Patrick Monreal MD MD cha Williams, Irene, RN RN Winter Amse RN RN James Morris, YVROSE RN jd3
--- NOTE | 2021-04-18 11:13 | EDPHYS ---
Physician Documentation [facility] Name: Rema Gray Age: 71 yrs Sex: Female : 1950 Arrival Date: 04/18/2021 Time: 08:22 Bed 19 Private MD: DOYLE Physician Patrick Monreal HPI: 04/18 11:02 This 71 yrs old Female presents to ER via Ambulatory with complaints of Knee satinder Pain. 11:02 The patient presents with decreased range of motion, an injury, pain, that is acute. satinder The complaints affect the right knee. Context: resulted from the patient falling, the patient can partially bear weight. Onset: The symptoms/episode began/occurred 2 day(s) ago. Modifying factors: The symptoms are alleviated by elevating leg, remaining still, the symptoms are aggravated by movement, weight bearing, bending knee. Associated signs and symptoms: The patient has no apparent associated signs or symptoms. Treatment prior to arrival includes: elevation of the extremity. Severity of symptoms: At their worst the symptoms were mild, moderate, in the emergency department the symptoms are unchanged. The patient has not experienced similar symptoms in the past. Historical: - Allergies: 08:24 Darvocet-N 100; ss 08:24 Niacin; ss - PMHx: 08:24 brain aneurysm; Hypertension; ss - PSHx: 08:24 Hysterectomy; brain surgery; leg surgery; ss - Immunization history:: Adult Immunizations unknown. - Social history:: Smoking status: unknown. - Family history:: not pertinent. ROS: 11:02 Constitutional: Negative for fever, chills, and weight loss, Eyes: Negative for injury, satinder pain, redness, and discharge, ENT: Negative for injury, pain, and discharge, Neck: Negative for injury, pain, and swelling, Cardiovascular: Negative for chest pain, palpitations, and edema, Respiratory: Negative for shortness of breath, cough, wheezing, and pleuritic chest pain, Abdomen/GI: Negative for abdominal pain, nausea, vomiting, diarrhea, and constipation, Back: Negative for injury and pain, : Negative for injury, bleeding, discharge, and swelling, Skin: Negative for injury, rash, and discoloration, Neuro: Negative for headache, weakness, numbness, tingling, and seizure, Psych: Negative for depression, anxiety, suicide ideation, homicidal ideation, and hallucinations, Allergy/Immunology: Negative for hives, rash, and allergies, Endocrine: Negative for neck swelling, polydipsia, polyuria, polyphagia, and marked weight changes, Hematologic/Lymphatic: Negative for swollen nodes, abnormal bleeding, and unusual bruising. 11:02 MS/extremity: Positive for decreased range of motion, pain, swelling, tenderness. Exam: 11:05 Constitutional: This is a well developed, well nourished patient who is awake, alert, satinder and in no acute distress. Head/Face: Normocephalic, atraumatic. Eyes: Pupils equal round and reactive to light, extra-ocular motions intact. Lids and lashes normal. Conjunctiva and sclera are non-icteric and not injected. Cornea within normal limits. Periorbital areas with no swelling, redness, or edema. ENT: Nares patent. No nasal discharge, no septal abnormalities noted. Tympanic membranes are normal and external auditory canals are clear. Oropharynx with no redness, swelling, or masses, exudates, or evidence of obstruction, uvula midline. Mucous membranes moist. Neck: Trachea midline, no thyromegaly or masses palpated, and no cervical lymphadenopathy. Supple, full range of motion without nuchal rigidity, or vertebral point tenderness. No Meningismus. Chest/axilla: Normal chest wall appearance and motion. Nontender with no deformity. No lesions are appreciated. Cardiovascular: Regular rate and rhythm with a normal S1 and S2. No gallops, murmurs, or rubs. Normal PMI, no JVD. No pulse deficits. Respiratory: Lungs have equal breath sounds bilaterally, clear to auscultation and percussion. No rales, rhonchi or wheezes noted. No increased work of breathing, no retractions or nasal flaring. Abdomen/GI: Soft, non-tender, with normal bowel sounds. No distension or tympany. No guarding or rebound. No evidence of tenderness throughout. Back: No spinal tenderness. No costovertebral tenderness. Full range of motion. Female : Normal external genitalia. Skin: Warm, dry with normal turgor. Normal color with no rashes, no lesions, and no evidence of cellulitis. Neuro: Awake and alert, GCS 15, oriented to person, place, time, and situation. Cranial nerves II-XII grossly intact. Motor strength 5/5 in all extremities. Sensory grossly intact. Cerebellar exam normal. Normal gait. Psych: Awake, alert, with orientation to person, place and time. Behavior, mood, and affect are within normal limits. 11:05 Musculoskeletal/extremity: ROM: limited active range of motion, limited passive range of motion, limited active range of motion due to pain, limited passive range of motion due to pain, Circulation is intact in all extremities. Sensation intact. Compartment Syndrome exam of affected extremity: is normal. Weight bearing: can bear weight with assistance only, uses crutch, DVT Exam: negative Homans' sign noted on exam, no appreciated bluish discoloration, no erythema, no increased warmth, pain, swelling, tenderness. Vital Signs: 09:08 BP 119 / 87; Pulse 89; Resp 17 S; Temp 98.3(TE); Pulse Ox 99% on R/A; jd3 10:56 Pulse 87; Resp 16 S; Pulse Ox 99% on R/A; jd3 MDM: 08:30 Patient medically screened. [facility] 11:10 Differential diagnosis: closed fracture, contusion. Data reviewed: vital signs, nurses [facility] notes, radiologic studies, plain films. Data interpreted: director of radiology: rate is 87 beats/min. Test interpretation: by ED physician or midlevel provider: plain radiologic studies. Counseling: I had a detailed discussion with the patient and/or guardian regarding: the historical points, exam findings, and any diagnostic results supporting the discharge/admit diagnosis, lab results, radiology results, the need for outpatient follow up, for definitive care, a family practitioner, a orthopedic surgeon. 04/18 08:26 Order name: XRAY Knee RIGHT 3 view ss 04/18 08:31 Order name: Ice pack; Complete Time: 08:48 satinder 04/18 11:02 Order name: Crutches; Complete Time: 11:35 satinder 04/18 11:02 Order name: Knee Immobilizer; Complete Time: 11:34 [facility] Administered Medications: 08:48 Drug: Motrin (ibuprofen) 600 mg Route: PO; jd3 09:48 Follow up: Response: No adverse reaction jd3 11:04 Drug: [place] (HYDROcodone-acetaminophen) 10 mg-325 mg 1 tabs Route: PO; iw 11:35 Follow up: Response: No adverse reaction; RASS: Alert and Calm (0) jd3 11:04 Drug: Ondansetron 4 mg Route: PO; iw 11:35 Follow up: Response: No adverse reaction jd3 Disposition: 04/18/21 11:13 Discharged to Home. Impression: Effusion, right knee, Fall due to bumping against object, Pain in right knee. - Condition is Stable. - Discharge Instructions: Joint Pain, How to Use a Knee Brace, Knee Effusion, Musculoskeletal Pain, Knee Pain, Cryotherapy, Zagz-yh-Ress, Cryotherapy, Knee Pain, Rilp-uc-Bhkh, Joint Pain, Xbsb-hb-Nkkw. - Prescriptions for Ibuprofen 600 mg Oral Tablet - take 1 tablet by ORAL route every 8 hours As needed take with food; 21 tablet. Tylenol- Codeine #3 300-30 mg Oral Tablet - take 2 tablets by ORAL route every 4-6 hours As needed; 20 tablet. - Medication Reconciliation Form, Thank You Letter, Antibiotic Education, Prescription Opioid Use form. - Follow up: Private Physician; When: 2 - 3 days; Reason: Recheck today's complaints, Continuance of care, Re-evaluation by your physician. Follow up: Kip Franks MD; When: 2 - 3 days; Reason: Recheck today's complaints, Continuance of care, Re-evaluation by your physician. - Problem is new. - Symptoms have improved. Signatures: Dispatcher [employer] EDMS Patrick Monreal MD MD cha Williams, Irene, RN YVROSE Winter Ames RN RN ss Davies, Jonathon, RN RN jd3 Corrections: (The following items were deleted from the chart) 11:36 11:13 04/18/2021 11:13 Discharged to Home. Impression: Effusion, right knee; Fall due jd3 to bumping against object; Pain in right knee. Condition is Stable. Forms are Medication Reconciliation Form, Thank You Letter, Antibiotic Education, Prescription Opioid Use. Follow up: Private Physician; When: 2 - 3 days; Reason: Recheck today's complaints, Continuance of care, Re-evaluation by your physician. Follow up: Dr. Kip Franks; When: 2 - 3 days; Reason: Recheck today's complaints, Continuance of care, Re-evaluation by your physician. Problem is new. Symptoms have improved. satinder
[2021-04-18] MEDS ORDERED: ONDANSETRON 4 MG (ODT) TAB ONE (11:26)
[2021-04-18] MEDS ORDERED: HYDROCODONE/APAP 10/325 TAB ONE (11:26)
[2021-04-18 11:41] VITALS: BP 119/87; TEMP 98.3; O2SAT 99
== END 2021-04-18 11:36 | disposition home or self-care (01) ==
LOC: ER 08:22
DX: M25.461 Effusion, right knee (principal); W18.00XA Striking against unspecified object with subsequent fall, initial encounter; I10 Essential (primary) hypertension; Z88.5 Allergy status to narcotic agent; Z91.048 Other nonmedicinal substance allergy status
CPT/HCPCS: 99284

== ENCOUNTER 2021-05-24 06:23 | Day surgery (SDC) | payer OTHER ==
[2021-05-24] MEDS ORDERED: Ringers Lactate 1,000 ML IV ONE (07:00)
[2021-05-24] MEDS ORDERED: MIDAZOLAM HCL 2 MG/2 ML INJ ONE (07:23)
[2021-05-24] MEDS ORDERED: propofoL 200 MG/20 ML VIAL IV ONE (07:23)
[2021-05-24] MEDS ORDERED: dexAMETHasone 10 MG/ML VIAL ONE (07:23)
[2021-05-24] MEDS ORDERED: FENTANYL CITR 100 MCG/2 ML ONE (07:23)
[2021-05-24] MEDS ORDERED: LIDOCAINE 1% MPF 5 ML VIAL ONE (07:24)
[2021-05-24] MEDS ORDERED: ONDANSETRON 4 MG/2 ML VIAL ONE (07:24)
[2021-05-24] MEDS ORDERED: CELECOXIB 100 MG CAPSULE ONE (07:38)
[2021-05-24] MEDS ORDERED: ACETAMINOPHEN 500 MG TAB ONE (07:38)
[2021-05-24] MEDS ORDERED: VASOPRESSIN 20 UNIT/ML VIAL ONE (07:55)
[2021-05-24] MEDS ORDERED: NA CHLORIDE 0.9% 0 ML IV ONE (07:55)
[2021-05-24] MEDS ORDERED: CEFAZOLIN/SWI 1gm 2 GM/20 ML SYR ONE (08:12)
[2021-05-24] MEDS: LIDOCAINE 1% W/EPI 1:100,000 MDV 20 ML VIAL ONE ×2 (08:18→08:20)
[2021-05-24] MEDS ORDERED: GLYCOPYRROLATE 0.2 MG/ML SYR ONE (08:44)
[2021-05-24] MEDS ORDERED: KETOROLAC 30 MG/ML INJ ONE (09:21)
[2021-05-24 11:33] VITALS: BP 148/79
[2021-05-24 11:38] VITALS: TEMP 97.2; O2SAT 99
--- NOTE | 2021-05-29 17:48 | OP ---
Date of Procedure: 05/24/2021 Surgeon: Breanna Small MD Sandwich Machine Operator: Sonia Sosa. 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 Procedures Performed: 1.Vulvar colposcopy. 2.Wide local excision of the dysplastic lesion. 3.V-Y perineoplasty. Anesthesia: General with LMA. Estimated Blood Loss: Minimal. Specimens: Perineal and vestibular skin. Complications: No complications. Drains: No drains. Condition: The patient's condition is stable. Findings: On vulvar colposcopy, old biopsy sites were noted as well as the areas marked on the vulva r colposcopy . These were confirmed on acetic acid application. The area of the previous dissection was identified and borders were marked for the excision of the lesion. At least 5 mm were ensured to be over from the microscopically visualized area of abnormality. On measurement, there was a 2.5 x 2 cm specimen that was obtained. I had an additional deepening treva hermosillo. Description Of Procedure: The patient is a 71-year-old with recurrent vulvar dysplasia over 2 years. Margins were positive on the last excision, then slowly over time the dysplasia has recurred in a s imilar location. Then, on colposcopy in the office 6 months ago, she had dysplasia. However, she wa s being observed and brought in for excision since there was no regression. Ancef was given preoperatively. The patient was prepped and draped in a sterile fashion after the ma rkings were placed. A simple straight catheter was used to catheterize the patient and local injecti on with 0.5% Marcaine was given in the area of the excision and on the lateral aspects of the perineu m as well. Then, a 15 blade was used to make a transverse skin incision. The entire skin was excise d in full thickness. Then, a proximal sliver of vestibular or vaginal epithelium was also excised so that there would be no extension to the inside. Once all these were handed up and being marked kayley rlthai for their margins, which was right, left and superior and inferior. Once this was sent away, arias kapil the perineum was fairly non-elastic and was difficult to reconstruct, so undermined the entire h ymenal area of the scar into the posterior wall prolapsed. Then, once the proximal margin was comple tely free and mobile, the lateral margins were visualized. The scar of the deep transverse perineum was exposed on both sides. Then, once all the incisions were well visible, then the v-shaped excisio n was closed and Y especially with advancement flaps. Interrupted 2-0 Vicryl and 3-0 Vicryl sutures were placed x6, 2 in the center, 2 on each side of the Y, then 4-0 Vicryl suture was taken and a cont inuous running horizontal mattress suture was placed to close the transverse incision. Then, the joanne tical incision was closed with a separate 4-0 Vicryl. Once all this was done, rectal exam was perfor med. There was no evidence of any trauma. The patient tolerated the procedure well. She was recove red and taken to PACU in stable condition. Instrument, needle, and sponge counts were correct at the end of the case. 0.5% Marcaine 10 cc was injected for postoperative pain control. SUSANA/SUSHMA Voice ID: [id number] Report ID: [id number]
== END 2021-05-24 11:20 | disposition home or self-care (01) ==
LOC: OR 06:23
PROVIDERS: ATTEND Obstetrics & Gynecology
PROC: 0UJH8ZZ Inspection of Vagina and Cul-de-sac, Via Natural or Artificial Opening Endoscopic (ICD-10-PCS; principal; 2021-05-24 07:30)
PROC: 0UBM0ZZ Excision of Vulva, Open Approach (ICD-10-PCS; 2021-05-24 07:30)
DX: N90.1 Moderate vulvar dysplasia (principal); L40.0 Psoriasis vulgaris; N95.2 Postmenopausal atrophic vaginitis; I10 Essential (primary) hypertension
CPT/HCPCS: 56820; 14040; 88305; J2704; J2250; J3010; J1100; J0690; J7120; J2405

== ENCOUNTER 2021-09-02 09:03 | Day surgery (SDC) | payer OTHER ==
--- NOTE | 2021-08-30 12:13 | EKG ---
Test Date: 2021-08-30 Test Time: 07:36:05 Latrine Cleaner: VIKTORIA MEASUREMENT RESULTS: Intervals: Rate: 69 SD: 184 QRSD: 86 QT: 402 QTc: 430 Hardwick: P: 51 SD: 184 QRS: 39 T: 61 INTERPRETIVE STATEMENTS: Normal sinus rhythm Normal ECG Compared to ECG 07/19/2020 11:19:47 ST (T wave) deviation no longer present Electronically Signed On 08-30-21 12:12:43 CDT by Joel Rogers
[2021-09-02] MEDS ORDERED: OXYMETAZOLINE HCL 0.05% 15ML NAS ONE ×2 (10:59→13:40)
[2021-09-02] MEDS ORDERED: Ringers Lactate 1,000 ML IV ONE (10:59)
[2021-09-02] MEDS ORDERED: ACETAMINOPHEN 500 MG TAB ONE (10:59)
[2021-09-02] MEDS: NA CHLORIDE 0.9% 1,000 ML ONE ×2 (13:15→14:13)
[2021-09-02] MEDS ORDERED: propofoL 200 MG/20 ML VIAL IV ONE (13:26)
[2021-09-02] MEDS ORDERED: MIDAZOLAM HCL 2 MG/2 ML INJ ONE (13:26)
[2021-09-02] MEDS ORDERED: LIDOCAINE 2% MPF 5 ML VIAL ONE (13:26)
[2021-09-02] MEDS ORDERED: GLYCOPYRROLATE 0.2 MG/ML SYR ONE (13:26)
[2021-09-02] MEDS ORDERED: ROCURONIUM 50 MG/5 ML VIAL IV ONE (13:27)
[2021-09-02] MEDS ORDERED: FENTANYL CITR 100 MCG/2 ML ONE (13:29)
[2021-09-02] MEDS ORDERED: ONDANSETRON 4 MG/2 ML VIAL ONE (13:29)
[2021-09-02] MEDS ORDERED: dexAMETHasone 10 MG/ML VIAL ONE (13:30)
[2021-09-02] MEDS ORDERED: LIDOCAINE 1% W/EPI 1:100,000 MDV 20 ML VIAL ONE (13:40)
--- NOTE | 2021-09-02 16:23 | P.BOP ---
Preoperative diagnosis: deviated septum, sarahy, ITH, NO Postoperative diagnosis: same Primary procedure: septoplasty Secondary procedure: right sarahy resection Other procedure(s): ITR Information Technology Technician: NONE,NONE Estimated blood loss: 30ml Specimen: septum/turbinates Anesthesia: General Complications: None Implants: Xerogel, Monson Splints Fluids & blood products: crystalloid 900ml Transferred to: Recovery Room Condition: Fair
[2021-09-02 16:51] VITALS: O2SAT 98
[2021-09-02] MEDS ORDERED: TRAMADOL HCL 50 MG TAB ONE (18:08)
[2021-09-02 19:06] VITALS: BP 173/77; TEMP 97.4
--- NOTE | 2021-09-03 04:06 | OP ---
Date of Procedure: 09/02/2021 Surgeon: Saskia Ramírez MD Preoperative Diagnoses: Septal deviation, bilateral sarahy bullosa, inferior turbinate hypertrophy and nasal obstruction. Postoperative Diagnoses: Septal deviation, bilateral sarahy bullosa, inferior turbinate hypertrophy and nasal obstruction. Procedure: Septoplasty, right sarahy bullosa resection, turbinate reduction via intramural cauterization. Indication For Procedure: Ms. Gray sustained remote facial trauma from a fall and did not seek medical attention at the time of the injury. She subsequently noted difficulty in breathing through the nose, which was compounding her sleep apnea. After reviewing CT of her sinuses along with the risks, benefits, and alternatives to procedure, she elected to proceed. Description Of Procedure: The patient was brought to the operating room. She was placed under general anesthesia via oral endotracheal tube. The head of bed was turned 90 degrees. The nasal hairs were trimmed in preparation for nasal surgery and the nasal cavity was packed with Afrin-soaked pledgets. After removal, a 0-degree endoscope was used for nasal endoscopy. She was noted to have a wide right middle turbinate distant with sarahy bullosa. She was noted to have significant left-sided septal deviation resulting in narrowing of the nasal cavity and difficulty in visualizing the middle turbinate. The 0-degree endoscope was then used to perform a right sarahy bullosa resection in the following manner. The middle turbinate was injected with 1% lidocaine with epinephrine. After several minutes for effect, a sickle knife was used to make an incision in the head of the middle turbinate and endoscopic scissors were used to cut the superior and inferior attachments of sarahy. The Thru-Cutting 45-degrees Blakesley was then used to cut along the posterior aspect and the lateral aspect of the sarahy bullosa were removed. A small area of pulsatile bleeding at the inferior posterior aspect of the middle turbinate was noted and treated with bipolar electrocautery and packing with Afrin-soaked pledgets. The 0-degree endoscope was used to examine the left nasal cavity, but it was too narrow to allow adequate dissection the sarahy bullosa and the septoplasty was performed first. The septum was injected with 1% lidocaine with epinephrine. A right hemitransfixion incision was made along the caudal aspect of the cartilaginous septum and bilateral mucoperiosteal perichondrial flaps were elevated using a [place] elevator. The septum was noted to be somewhat flexible with concern for prior horizontal fracture. A 15 blade was used to incise the cartilaginous septum leading approximately 2 cm posteriorly and 1.5 cm inferiorly, creating an adequate L strut. The posterior cartilage was carefully loosened and removed in 2 individual fragments. The deviated bony portion of the septum was then cut using heavy angle scissors and carefully removed. Additional portions of the bony deviation were removed using a Bertin rongeur until the septum was adequately shaped and approximately in midline. Some additional bony fragments including a small septal spur more posteriorly were removed using Thru-Cutting Blakesley forceps and Bertin rongeurs. A small area of bony deviation into the left nasal cavity along the nasal floor was removed using [place] rongeurs. Afrin-soaked pledgets were applied between the septal flaps and within the nasal cavity to aid in hemostasis. After removal, the 0-degree endoscope was used to visualize the middle turbinate. The left turbinate sarahy was not as large as the right side and decision was made to bluntly collapse the sarahy with a freer elevator, resulting in a more open middle meatus. The unprotected needle point bovie was used to create three channels of cauterization within the soft tissue of the right inferior turbinate to reduce the bulk of the soft tissue. The left turbinate was well decongested and was down fractured to create a more open airway. The plegets were removed and there was moderate bleeding noted along the left floor of the septum which was treated with bipolar cautery and hemostasis achieved. All plegets were removed and counts confirmed correct. The right middle meatus had mild oozing and was packed with Xerogel hemostatic dissolvable dressing. After several minutes, the nasal cavities and nasopharyx were examined with the scope and confirmation of hemostasis was made. The previously removed cartilage fragments were trimmed and shaved to a planar shaped and placed between the septal flaps. The hemitransfixion incision was closed with running chromic sutures. The septal flaps were then approximated in a quilting fashion using pain gut suture on a small cb needle. Monson splints were placed in the bilateral nasal cavities and secured to the membranous septum with a 4-0 nylon suture. The oral phaynx was suctioned and closely examined and no additional bleeding was noted. The patient was returned to care of anesthesia team for awakening and extubation in the OR which was performed without difficulty. Implants: B Monson splints, Dissolvable Xerogel to Right Middle Meatus. Disposition: Discharge to home with nasal precautions and return to Dr Ramírez's office in 10 days for splint removal SH/SUSHMA Voice ID: [id number] Report ID: [id number] MTDD
== END 2021-09-02 18:30 | disposition home or self-care (01) ==
LOC: PRE 09:03
PROVIDERS: ATTEND Otolaryngology
PROC: 095L8ZZ Destruction of Nasal Turbinate, Via Natural or Artificial Opening Endoscopic (ICD-10-PCS; 2021-09-02)
PROC: 09TL8ZZ Resection of Nasal Turbinate, Via Natural or Artificial Opening Endoscopic (ICD-10-PCS; 2021-09-02)
PROC: 09SM4ZZ Reposition Nasal Septum, Percutaneous Endoscopic Approach (ICD-10-PCS; principal; 2021-09-02 10:30)
DX: J34.2 Deviated nasal septum (principal); J30.1 Allergic rhinitis due to pollen; J34.3 Hypertrophy of nasal turbinates; J34.89 Other specified disorders of nose and nasal sinuses; Z20.822 Contact with and (suspected) exposure to COVID-19
CPT/HCPCS: 30520; 30801; 31240; 93005; 88304; 88311; U0002; J2704; J2250; J3010; J1100; J7120; J7040; J2405

== ENCOUNTER 2021-09-06 06:06 | Day surgery (SDC) | payer OTHER ==
[2021-09-06] MEDS ORDERED: Ringers Lactate 1,000 ML IV ONE (07:19)
[2021-09-06] MEDS ORDERED: NA CHLORIDE 0.9% 0 ML ONE (07:42)
[2021-09-06] MEDS ORDERED: LIDOCAINE 1% W/EPI 1:100,000 MDV 20 ML VIAL ONE (07:42)
[2021-09-06] MEDS ORDERED: OXYMETAZOLINE HCL 0.05% 15ML NAS ONE ×2 (07:42→09:06)
[2021-09-06] MEDS ORDERED: MIDAZOLAM HCL 2 MG/2 ML INJ ONE (07:45)
[2021-09-06] MEDS ORDERED: propofoL 200 MG/20 ML VIAL IV ONE (07:45)
[2021-09-06] MEDS ORDERED: LIDOCAINE 2% MPF 5 ML VIAL ONE (07:46)
[2021-09-06] MEDS ORDERED: FENTANYL CITR 100 MCG/2 ML ONE ×2 (07:46→10:50)
[2021-09-06] MEDS ORDERED: ONDANSETRON 4 MG/2 ML VIAL ONE (07:48)
[2021-09-06] MEDS ORDERED: dexAMETHasone 4 MG/ML VIAL ONE (07:48)
[2021-09-06] MEDS ORDERED: ROCURONIUM 50 MG/5 ML VIAL IV ONE (07:48)
[2021-09-06] MEDS ORDERED: GLYCOPYRROLATE 0.2 MG/ML SYR ONE (08:27)
[2021-09-06] MEDS ORDERED: ESMOLOL HCL 10 ML IV ONE (08:45)
--- NOTE | 2021-09-06 09:04 | P.BOP ---
Preoperative diagnosis: epistaxis, septal hematoma Postoperative diagnosis: same Primary procedure: NE with control of epistaxis Boiler Control Technician: NONE,NONE Estimated blood loss: 50ml Specimen: none Findings: bleeding anterior and posterior between septal flaps, right MM bleeding Anesthesia: General Complications: None Implants: Monson splints, Bear. Floseal R MM. Surgical to intra-septum Fluids & blood products: crystalloid 700ml Transferred to: Recovery Room Condition: Good
[2021-09-06] MEDS ORDERED: NEOSTIGMINE 1 MG/ML -5 ML ONE (10:08)
[2021-09-06 11:54] VITALS: BP 130/75; O2SAT 98
[2021-09-06 11:55] VITALS: TEMP 98.2
--- NOTE | 2021-09-08 22:45 | OP ---
Date of Procedure: 09/06/2021 Surgeon: Saskia Ramírez MD Equipment Analyst: None. Preoperative Diagnosis: Epistaxis, septal hematoma. Postoperative Diagnosis: Epistaxis, septal hematoma. Procedure: Nasal endoscopy with control of epistaxis, bilateral. Estimated Blood Loss: 50 mL. Specimens: None. Indication For Procedure: Ms. Gray underwent a septoplasty with right sarahy bullosa resection and right inferior cautery of the inferior turbinate. She did well initially in the postoperative cours e, but on postoperative day 3, she developed bleeding from the right nose, which was moderate and con trolled with direct pressure. On the following day, she continued to have a small amount of oozing p rimarily from the right side. She was evaluated in the ENT clinic with slow oozing around the right Monson splint. The risks, benefits, and alternatives to procedure were discussed. The patient agreed to proceed with exam under anesthesia and intraoperative evaluation for septal hematoma. Of note, t he patient has a history of elevated blood pressure for which she takes multiple medications. On the initial morning of the bleeding, her blood pressure at home was measured at 180/90. Description Of Procedure: The patient was brought to the operating room. She was placed under gener al anesthesia via oral endotracheal tube. The head of bed was turned 90 degrees and the patient was prepped and draped in standard fashion for nasal surgery. The nasal cavity was examined and there wa s blood in both the right and left nasal cavity, which appeared worse on the right side. There was v michael mild oozing, but persistent fresh blood. The previously placed Monson splints were removed and th e right nasal cavity was examined using a 0 degree endoscope. Clot and blood and mucus was suctioned from the nasal cavity and middle meatus. There was moderate oozing within the middle meatus and thi s area was packed with Afrin-soaked pledgets for several minutes to aid in hemostasis. The bipolar b ayonet cautery was used to cauterize several small areas on the lateral nasal wall and along the infe rior edge of the sarahy section/middle turbinates. Additional packing was placed in the superior asp ect of this with some clinical concerns for bleeding from the anterior ethmoid area, desired to avoid additional dissection necessitated placement of Afrin-soaked pledgets into this area and assessment of other areas of the nose in regard to additional bleeding. The septum did appear to be bulging on both sides with oozing noted through the right hemitransfixion incision as well as from left posterio r septal flap lacerations. The previously placed sutures were removed and the septal flaps were elev ated. The cartilage graft from between the septal flaps were removed and set aside for later replace ment. There was significant bleeding along the floor of the left septum, which was treated with caut michael and packing. There was additional bleeding more posteriorly, which required cauterization and pa cking with Afrin-soaked pledgets with incomplete improvement. The area was packed with Afrin-soaked pledgets and direct pressure was held on the nose including compression at the nasal spine and along the nasal dorsum. After several minutes, the packing was removed. The bleeding within the posterior septum was improved, but not resolved. Surgicel was placed within this area and left for several mi nutes to aid in hemostasis. After removal, the bleeding was much improved and a small sheet of Surgi vanda was replaced in this area to provide some additional pull string without excessive bulk. The pre viously removed cartilage grafts were replaced between the septal flaps and the hemitransfixion incis ion was closed using interrupted resorbable sutures. The 0 degree endoscope was used to perform a na cj endoscopy for better visualization of the intra-septal region during this treatment. After re-cl osure of the septum, the left septal flap lacerations were examined and there was no significant blee ding coming from this area. The 0-degree endoscope was then used to examine the middle meatus on the right side. The packing was removed and there was no significant bleeding. In hopes of reducing fu ture bleeding and further surgical complications, 5 mL of FloSeal were prepared in accordance with catherine keen's instructions and used to fill the middle meatus and right nasal cavity. The residual ma terial was placed along the lacerations of the left septal flap in order to provide hemostasis in the se areas as well. The Monson splints which had been cleaned were replaced and sutured with a single n ylon suture into the membranous portion of the intranasal septum. The nose was carefully examined. The oropharynx was suctioned and carefully examined and there was no evidence of residual oozing or p ersistent bleeding. The procedure was concluded. The patient was brought to Anesthesia for awakenin g and extubation in the operating room, which proceeded without difficulty. Complications: None. Disposition: The patient will be discharged home later today in the care of her family to continue h er recovery. The patient's family is instructed to carefully monitor her blood pressure at home and contact her PCP for any measurements exceeding 150/85 for further medical management. In addition, I communicated with the patient's PCP, Dr. Machado in regard to her surgical complication and need for c lose blood pressure control, particularly over the next 2 weeks. SELIN/SUSHMA Voice ID: [id number] Report ID: [id number]
== END 2021-09-06 11:10 | disposition home or self-care (01) ==
LOC: DS 06:06 → OR 06:11 → DS 06:27
PROVIDERS: ATTEND Otolaryngology
PROC: 093K8ZZ Control Bleeding in Nasal Mucosa and Soft Tissue, Via Natural or Artificial Opening Endoscopic (ICD-10-PCS; principal; 2021-09-06 07:00)
DX: R04.0 Epistaxis (principal); J34.2 Deviated nasal septum; J34.89 Other specified disorders of nose and nasal sinuses; J34.3 Hypertrophy of nasal turbinates
CPT/HCPCS: 31238; J2704; J1100; J2250; J3010 ×2; J2710; J7120; J2405; J7040